=== PATIENT | male | born 1955 | race Caucasian/White ===

== ENCOUNTER 2021-09-09 23:48 | Outpatient (CLI) | payer OTHER | END 2021-09-09 23:49 | disposition EMS.NT | LOC: EMS 23:48 | DX: M54.9 Dorsalgia, unspecified (principal) ==

== ENCOUNTER 2021-09-10 01:00 | Emergency (ER) | payer OTHER ==
[2021-09-10] MEDS ORDERED: HYDROmorphone 1 MG/ML CARPUJECT IM STA (01:34)
[2021-09-10] MEDS ORDERED: LIDOCAINE PATCH 5% TOP STA (01:34)
[2021-09-10] MEDS ORDERED: CYCLOBENZAPRINE 10 MG TABLET PO STA (01:34)
--- NOTE | 2021-09-10 02:00 | XRAY Report ---
PROCEDURE: Chest 1 View X-Ray INDICATIONS: fall TECHNIQUE: One view of the chest was acquired. COMPARISON: None. FINDINGS: Surgical changes and devices: None. Lungs and pleura: There are linear left basilar opacities likely represent atelectasis. Mild pulmonar y vascular prominence is present suggestive of pulmonary edema. No definite pulmonary contusions. No pleural effusions or pneumothorax. Mediastinum: Mediastinal contours appear normal. Heart size is normal. Bones and chest wall: No displaced fractures identified. No suspicious bony lesions. Overlying soft tissues appear unremarkable. IMPRESSION: 1. No definite acute traumatic abnormality. 2. Linear left basilar opacities likely represent atelectasis. 3. Pulmonary vascular prominence suggestive of mild pulmonary edema. Reviewed by: Hernandez Foster MD on 09/10/2021 2:03 AM PDT Approved by: Hernandez Foster MD on 09/10/2021 2:03 AM PDT Station ID: [id number]
[2021-09-10 03:13] VITALS: BP 128/96
--- NOTE | 2021-09-10 03:13 | ED Physician Documentation ---
History of Present Illness - Stated complaint Stated Complaint: LT SIDE BACK PX - Chief complaint Chief Complaint: Back Pain - Additonal information Additional information: Patient is a 65-year-old male with no significant past medical history presenting for evaluation of left thoracic back pain. Patient fell on ting that his legs slipped out from under himAnd he struck the left thoracic back. He was seen in the [place] [facility]. He had x-rays done which were negative for fracture. He was given oxycodone for pain. He has only been needing 1-2 doses of pain medication per day. Patient and his traveled to [facility] today for a get away. While stepping out of the bathtub, he felt a sharp sudden sharp pain in the backThen had to lay on the ground. Patient had difficulty getting up after that. Pain does not radiate. It is sharp And he also describes it as feeling as if the muscle is very tight. It is worse with certain movements. Laying still makes it better.Patient denies fever, head injury, chest pain or difficulty breathing, abdominal pain, vomiting, loss of control of bowel or bladder, radiating pain to lower extremities. Review of Systems Constitutional: denies: Fever Nose: denies: Congestion Cardiac: denies: Chest pain / pressure, Palpitations Respiratory: denies: Dyspnea, Cough GI: denies: Abdominal Pain, Vomiting, Diarrhea : denies: Dysuria, Incontinent Skin: denies: Rash Musculoskeletal: reports: Back pain. denies: Neck pain Neurologic: denies: Syncope, Head injury PD PAST MEDICAL HISTORY - Past Medical History Past Medical History: Yes Cardiovascular: Hypertension - Past Surgical History Past Surgical History: Yes General: Appendectomy - Present Medications Home Medications: Ambulatory Orders Medication Instructions Recorded Confirmed Cyclobenzaprine [Flexeril] 10 mg PO TID PRN #20 tablet 09/10/21 Lidocaine Patch 5% [Lidoderm Patch] 1 patch TOP DAILY PRN #10 patch 09/10/21 - Allergies Allergies/Adverse Reactions: Allergies Allergy/AdvReac Type Severity Reaction Status Date / Time No Known Drug Allergies Allergy Verified 09/10/21 01:11 - Social History Does the pt smoke?: Yes Smoking Status: Current every day smoker Does the pt drink ETOH?: Yes Does the pt have substance abuse?: No - Immunizations Immunizations are current?: Yes PD ED PE NORMAL - General General: Alert and oriented X 3, No acute distress, Well developed/nourished - HEENT HEENT: Atraumatic, Moist mucous membranes - Neck Neck: Supple, no meningeal sign, No bony TTP, C-Spine cleared by NEXUS criteria - Cardiac Cardiac: RRR, No murmur, Strong equal pulses - Respiratory Respiratory: No respiratory distress, Clear bilaterally - Abdomen Abdomen: Normal bowel sounds, Soft, Non tender, Non distended - Back Back: No spinal TTP - Derm Derm: No rash - Extremities Extremities: No edema, Other (Strong distal pulses in bilateral lower extremities) - Neuro Neuro: Alert and oriented X 3, No motor deficit, No sensory deficit, Normal speech - Psych Psych: Normal mood PD ED PE EXPANDED - Back Back visual: 1 - tenderness (No crepitus, no rash, no deformity) Results - Vitals Vitals: Vital Signs - 24 hr 09/10/21 09/10/21 01:08 03:10 Temperature 36.1 C L Heart Rate 88 79 Respiratory 18 18 Rate Blood Pressure 167/108 H 128/96 H O2 Saturation 98 96 Oxygen O2 Source Room air PD MEDICAL DECISION MAKING - ED course Complexity details: reviewed results, re-evaluated patient, d/w patient, d/w family ED course: Patient presenting for evaluation of left thoracic back pain after trauma few days ago.Is there is no migration to the pain and it is similar to recent pain given trauma I do not suspect aortic dissection or cardiac etiology to the pain.No red flag signs or symptoms in regards to the back pain.Distal pulses intact and no abnormal neurologic findings.X-ray was done to confirm no fractures or pneumothorax.Patient did have improvement in his symptoms with medications given today.Patient was able to stand and urinate and able to transition from bed to wheelchair as well as adjust his position. Continues to have some episodes of sharp pain but significantly decreased from arrival. Discussed plan to continue with supportive care and need for close follow- up.Patient and his spouse are also aware of strict return precautions. 0311 - Patient doing better, still having some episodes of sharp pain with movements but was able to stand to use the urinal. Departure - Departure Disposition: 01 Home, Self Care Clinical Impression: Back strain Qualifiers: Encounter type: subsequent encounter Qualified Code(s): S39.012D - Strain of muscle, fascia and tendon of lower back, subsequent encounter Condition: Stable Instructions: ED Neck Back Pain General Prescriptions: Cyclobenzaprine [Flexeril] 10 mg PO TID PRN #20 tablet PRN Reason: Spasms Lidocaine Patch 5% [Lidoderm Patch] 1 patch TOP DAILY PRN #10 patch PRN Reason: pain Comments: Matheus - You were seen for an injury to your back. An x-ray does not reveal a broken bone. The pain is likely related to spasm of the muscle. You were given medication to help with this which should continueTo work for the next few hours. I will also send a prescription for a muscle relaxer to the [facility] in [place] as well as for lidocaine patches. Please continue to use the narcotic medication she were previously prescribed as well as the medications I have sent to the pharmacy. Please be cautious when using the muscle relaxer along with a narcotic medication as they may cause oversedation if used together. If it anytime you have worsening pain, new pain or other symptoms such as chest pain, Difficulty breathing, leg weakness, trouble controlling your bowel or bladderplease return to the emergency department. Discharge Date/Time: 09/10/21 03:33
[2021-09-10] MEDS ORDERED: oxyCODONE/ACET 5/325 Prepack 4 PO STA (03:26)
== END 2021-09-10 03:33 | disposition home or self-care (01) ==
LOC: ED 01:00
DX: S39.012A Strain of muscle, fascia and tendon of lower back, initial encounter (principal); W18.2XXA Fall in (into) shower or empty bathtub, initial encounter; I10 Essential (primary) hypertension; F17.200 Nicotine dependence, unspecified, uncomplicated
CPT/HCPCS: 71045; 96372; 99282; 99283; A9270; J1170